=== PATIENT | male | born 2000 | race Caucasian/White ===

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

== ENCOUNTER 2022-02-19 11:00 | Emergency (ER) | payer OTHER ==
[~2022-02-19 11:00] MED LIST: ZOFRAN ODT 4 MG4 MG GT; ZOFRAN4 MG PO
== END 2022-02-19 12:23 | disposition home or self-care (01) ==
LOC: ER1 11:00
DX: K08.89 Other specified disorders of teeth and supporting structures (principal); F17.200 Nicotine dependence, unspecified, uncomplicated
CPT/HCPCS: 96372; 99282; J1885